=== PATIENT | female | born 1990 | race Caucasian/White ===

== ENCOUNTER 2020-05-20 13:23 | Emergency (ER) | payer MEDICAID, OTHER ==
[2020-05-20 13:56] VITALS: BP 109/55; PULSE 73; O2SAT 98
--- NOTE | 2020-05-20 14:10 | ERPHSYRPT ---
- History of Present Illness Source: patient Exam Limitations: no limitations Patient Subjective Stated Complaint: pt to ER with complaints of R knee injury. pt states she twisted wrong and felt a "pop" on wednesday. pt states it started hurting today bending it and putting weight on it. Triage Nursing Assessment: pt ambulatory. pt skin pwd. A&Ox4. presents with knee brace on . Physician History: 29 yo wf twisted R knee 2 days ago. She heard a pop and now has pain 5/10 when weight bearing. Pt states that she dislocated her knee back in high school but has had no residual problems. Method of Injury: twisted Occurred: days ago (2 days ago) Quality: other (sharp pain when weight bearing) Severity of Pain-Max: moderate Severity of Pain-Current: none Lower Extremities Pain: knee: right Modifying Factors: Improves With: movement Associated Symptoms: popping sensation, No unable to bear weight Allergies/Adverse Reactions: No Known Drug Allergies Allergy (Unverified 05/20/20 13:56) Hx Tetanus, Diphtheria Vaccination/Date Given: Yes Hx Influenza Vaccination/Date Given: Yes Hx Pneumococcal Vaccination/Date Given: No Immunizations Up to Date: Yes Travel Risk - International Travel Have you traveled outside of the country in past 3 weeks: No - Coronavirus Screening Are you exhibiting any of the following symptoms?: No Close contact with a COVID-19 positive Pt in past 14-21 Days: No - Review of Systems Constitutional: No Symptoms Eyes: No Symptoms Ears, Nose, & Throat: No Symptoms Respiratory: No Symptoms Cardiac: No Symptoms Abdominal/Gastrointestinal: No Symptoms Skin: No Symptoms Neurological: No Symptoms Psychological: No Symptoms Endocrine: No Symptoms Hematologic/Lymphatic: No Symptoms Immunological/Allergic: No Symptoms - Past Medical History Pertinent Past Medical History: No - Past Surgical History Past Surgical History: Yes Gastrointestinal: Cholecystectomy Female Surgical History: Section - Social History Smoking Status: Current every day smoker Exposure to second hand smoke: Yes Drug Use: none Patient Lives Alone: No - Female History Hx Last Menstrual Period: 05/07/2020 Hx Now: No - Nursing Vital Signs Nursing Vital Signs: Initial Vital Signs Temperature 98.8 F 05/20/20 13:50 Pulse Rate 73 05/20/20 13:50 Respiratory Rate 16 05/20/20 13:50 Blood Pressure 109/55 05/20/20 13:50 O2 Sat by Pulse Oximetry 98 05/20/20 13:50 Pain Scale Pain Intensity 5 - Physical Exam General Appearance: no apparent distress Eyes, Ears, Nose, Throat Exam: normal ENT inspection Neck Exam: normal inspection, non-tender, full range of motion, No Brudzinski, No Kernig's, No meningismus Cardiovascular/Respiratory Exam: normal breath sounds, regular rate/rhythm, heart sounds normal, no respiratory distress Back Exam: normal inspection, normal range of motion Knees Exam: right knee: bone tenderness (R knee TTP laterally/FROM w pain/No instability/good pedal pulse, distal sensation, and capillary return) Ankle Exam: bilateral ankle: non-tender, normal inspection, normal range of motion, no evidence of injury DTR - Lower Extremities Exam: knee (R): 2+, knee (L): 2+ Neuro/Tendon Exam: normal sensation, normal motor functions, normal tendon functions, responds to pain, no evidence tendon injury Mental Status Exam: alert, oriented x 3, cooperative Skin Exam: normal color, warm, dry SpO2 Interpretation: normal SpO2: 98 O2 Delivery: Room Air - Course Nursing assessment & vital signs reviewed: Yes - Radiology Exams Knee X-ray Interpretation: Discussed w/ radiologist (Minimal supra-patellar joint effusion/Superior fibula cortical defect vs osteochondroma) Ordered Tests: Active Orders 24 hr Category Date Time Status AMA [Release AMA] OM.NOW Care 05/20/20 15:26 Completed KNEE (3 VIEWS) Stat Exams 05/20/20 14:41 Completed - Progress Progress: unchanged Progress Note: 05/20/20 15:22 Pt left AMA before XR read due to having to pick children up at school unexpectively. 05/20/20 16:16 Pt called about XR results and will f/u in ortho clinic Counseled pt/family regarding: need for follow-up - Departure Departure Disposition: AMA Clinical Impression: Knee strain Condition: Stable Critical Care Time: No Referrals: AFSHAN BOWLES NP [Primary Care Provider] - Instructions: Knee Sprain (DC), Knee Pain (DC)
--- NOTE | 2020-05-20 15:18 | XRAY ---
Exam: 3 view right knee series from 05/20/2020. Comparison: None. Indication: 29-year-old female injured right knee, complains of anterior pain, no history of prior surgery. Findings: AP, internal oblique, and lateral radiographs of the right knee were obtained. I see no acute fracture or dislocation. There appears to be minimal soft tissue density within the suprapatellar bursa on the lateral radiograph. This could be physiologic, or due to a minimal joint effusion. The patellofemoral joint space appears unremarkable. The femoral tibial joint appears normal. There appears to be a tiny fibrous cortical defect or osteochondroma within the proximal right fibula shaft. No other focal bone lesion is seen. Impression: 1. No acute right knee fracture or dislocation is seen. 2. Minimal physiologic fluid versus minimal suprapatellar joint effusion.
== END 2020-05-20 15:14 | disposition left against medical advice (07) ==
LOC: ED 13:23
DX: S83.91XA Sprain of unspecified site of right knee, initial encounter (principal); X50.1XXA Overexertion from prolonged static or awkward postures, initial encounter
CPT/HCPCS: 73562; 99283

== ENCOUNTER 2020-08-13 11:38 | Emergency (ER) | payer OTHER ==
[2020-08-13] MEDS ORDERED: Zithromax 250 MG TABLET PO ONE (11:58)
[2020-08-13] MEDS ORDERED: ROCEPHIN 250 MG INJ IM ONE (11:58)
--- NOTE | 2020-08-13 12:03 | ERPHSYRPT ---
- History of Present Illness Time Seen by Provider: 08/13/20 11:55 Source: patient Patient Subjective Stated Complaint: Pt states "It ulloa when I pee and I have had some clear vaginal discharge. My boyfriend cheated on me about a week and a half ago and I am not sure if I have something else or just a UTI." Triage Nursing Assessment: Pt presetned alert and oriented X 3, skin pwd. pt ambulates with an upright steady gait, able to speak in clear full sentences pt in no apparent respiratory distress. Physician History: Patient is here with urinary disturbance. Patient is is most concerned about an STD today. She states her boyfriend cheated on her 1 month ago. She has no abdominal pain, fever, chills, nausea, vomiting. No systemic signs of illness. No problems eating drinking. Timing/Duration: day(s) (3 days) Activites at Onset: none Quality: burning Onset Location: vaginal Pain Radiation: none Severity of Pain-Max: mild Severity of Pain-Current: mild Prior abdominal problems: STD, UTI Sexual intercourse history: single partner, unprotected intercourse Modifying Factors: Improves With: nothing Associated Symptoms: denies symptoms Allergies/Adverse Reactions: No Known Drug Allergies Allergy (Verified 08/13/20 11:51) Home Medications: No Reportable Medications [No Reported Medications] 08/13/20 [History] Hx Tetanus, Diphtheria Vaccination/Date Given: No Hx Influenza Vaccination/Date Given: No Hx Pneumococcal Vaccination/Date Given: No Travel Risk - International Travel Have you traveled outside of the country in past 3 weeks: No - Coronavirus Screening Are you exhibiting any of the following symptoms?: No Close contact with a COVID-19 positive Pt in past 14-21 Days: No - Review of Systems Constitutional: No Fever, No Chills Eyes: No Symptoms Ears, Nose, & Throat: No Symptoms Respiratory: No Cough, No Dyspnea Cardiac: No Chest Pain, No Edema, No Syncope Abdominal/Gastrointestinal: No Abdominal Pain, No Nausea, No Vomiting, No Diarrhea Genitourinary Symptoms: Dysuria, Frequency Musculoskeletal: No Back Pain, No Neck Pain Skin: No Rash Neurological: No Dizziness, No Focal Weakness, No Sensory Changes Psychological: No Symptoms Endocrine: No Symptoms All Other Systems: Reviewed and Negative - Past Medical History Pertinent Past Medical History: No - Past Surgical History Past Surgical History: Yes Gastrointestinal: Cholecystectomy Female Surgical History: Section Other Surgical History: c section X 3 - Social History Smoking Status: Current some day smoker How long have you smoked: years Exposure to second hand smoke: Yes Drug Use: none Patient Lives Alone: No - Female History Hx Last Menstrual Period: 08/04/2020 Hx Now: No - Nursing Vital Signs Nursing Vital Signs: Initial Vital Signs Temperature 98.6 F 08/13/20 11:43 Pulse Rate 78 08/13/20 11:43 Respiratory Rate 20 08/13/20 11:43 Blood Pressure 141/68 08/13/20 11:43 O2 Sat by Pulse Oximetry 100 08/13/20 11:43 Pain Scale Pain Intensity 4 - Physical Exam General Appearance: no apparent distress, alert Eye Exam: PERRL/EOMI, eyes nml inspection Ears, Nose, Throat Exam: normal ENT inspection, TMs normal, pharynx normal, moist mucous membranes Neck Exam: normal inspection, non-tender, supple, full range of motion Respiratory Exam: normal breath sounds, lungs clear, No respiratory distress Cardiovascular Exam: regular rate/rhythm, normal heart sounds, normal peripheral pulses Gastrointestinal/Abdomen Exam: soft, No tenderness, No mass Back Exam: normal inspection, normal range of motion, No CVA tenderness, No vertebral tenderness Extremity Exam: normal inspection, normal range of motion, pelvis stable Neurologic Exam: alert, oriented x 3, cooperative, home demonstration agent II-XII nml as tested, normal mood/affect, sensation nml, No motor deficits Skin Exam: normal color, warm, dry Lymphatic Exam: No adenopathy SpO2: 100 - Course Nursing assessment & vital signs reviewed: Yes Ordered Tests: Active Orders 24 hr Category Date Time Status HCG,QUALITATIVE URINE Stat Lab 08/13/20 12:19 Completed UA W/RFX UR CULTURE Stat Lab 08/13/20 12:19 Completed Medication Summary Discontinued Medications Generic Name Dose Route Start Last Admin Trade Name Freq PRN Reason Stop Dose Admin Azithromycin 2,000 mg 08/13/20 11:58 08/13/20 12:28 Zithromax 250 Mg Tablet PO 08/13/20 11:59 2,000 mg STAT ONE Administration Azithromycin Confirm 08/13/20 12:22 Zithromax 250 Mg Tablet Administered 08/13/20 12:23 Dose 2,000 mg .ROUTE .STK-MED ONE Ceftriaxone Sodium 250 mg 08/13/20 11:58 08/13/20 12:30 Rocephin 250 Mg Inj IM 08/13/20 11:59 250 mg STAT ONE Administration Lidocaine HCl Confirm 08/13/20 12:41 Xylocaine 1% Hcl 20 Ml Mdv Administered 08/13/20 12:42 Dose 3 ml .ROUTE .STK-MED ONE Lab/Rad Data: Laboratory Results 08/13/20 08/13/20 Range/Units 12:19 12:19 Urine Color YELLOW (YELLOW) Urine Appearance SLIGHTLY CLOUDY (CLEAR) Urine pH 7.0 (5-6) Ur Specific [place] 1.026 (1.005-1.025) Urine Protein 30 (Negative) Urine Ketones NEGATIVE (NEGATIVE) Urine Blood NEGATIVE (0-5) [place]/ul Urine Nitrite NEGATIVE (NEGATIVE) Urine Bilirubin NEGATIVE (NEGATIVE) Urine Urobilinogen 4 (0-1) mg/dL Ur Leukocyte Esterase NEGATIVE (NEGATIVE) Urine WBC (Auto) 0-2 (0-5) /HPF Urine RBC (Auto) 0-2 (0-2) /HPF U Epithel Cells (Auto) RARE (FEW) /HPF Urine Bacteria (Auto) NONE (NEGATIVE) /HPF Urine Mucus (Auto) SLIGHT (NEGATIVE) /HPF Urine Culture Reflexed NO (NO) Urine Glucose NEGATIVE (NEGATIVE) mg/dL Urine HCG, Qual NEGATIVE (Negative) - Progress Progress: improved Air Movement: good Progress Note: 08/13/20 12:02 We will treat empirically with azithromycin and Rocephin. We will also obtain urinary , UA. Patient will self swab. Although these results will not return today. We will at least no if we empirically treated her correctly. - Departure Departure Disposition: Home Clinical Impression: STD exposure Condition: Stable Critical Care Time: No Referrals: AFSHAN BOWLES NP [Primary Care Provider] - Instructions: Urinary Tract Infection, Adult (DC)
[2020-08-13] MEDS ORDERED: Zithromax 250 MG TABLET ONE (12:22)
[2020-08-13] MEDS ORDERED: XYLOCAINE 1% HCL 20 ML MDV ONE (12:41)
[2020-08-13 12:42] LABS: Appearance SLIGHTLY CLOUDY (CLEAR); Bilirubin NEGATIVE (NEGATIVE); Blood NEGATIVE Ery/ul (0-5); Epithelial Cells RARE /HPF (FEW); Glucose NEGATIVE (NEGATIVE); Ketones NEGATIVE (NEGATIVE); Leukocyte Esterase NEGATIVE (NEGATIVE); Mucus SLIGHT /HPF (NEGATIVE); Nitrite NEGATIVE (NEGATIVE); Protein,Urine Dip 30 (Negative); RBC 0-2 /HPF (0-2); Specific Gravity 1.026 (1.005-1.025); Urobilinogen 4 mg/dL (0-1); WBC 0-2 /HPF (0-5)
[2020-08-13 13:05] VITALS: BP 113/75; PULSE 68; O2SAT 98
== END 2020-08-13 13:27 | disposition home or self-care (01) ==
LOC: ED 11:38
DX: Z20.2 Contact with and (suspected) exposure to infections with a predominantly sexual mode of transmission (principal)
CPT/HCPCS: 81001; 84703; 87491; 87591; 96372; 99284; J0696; A9270-GY